=== PATIENT | female | born 1995 | race Caucasian/White ===

== ENCOUNTER 2024-09-28 20:05 | Emergency (ER) | payer OTHER, SELFPAY ==
[2024-09-28 20:33] VITALS: BP 132/68; PULSE 94; RESP 16; TEMP 36.9; O2SAT 100; BMI 24.6
--- NOTE | 2024-09-28 20:45 | DI.RAD.S_ITS ---
PROCEDURE: XR ANKLE LT MIN 3V INDICATIONS: Fall, twisted L ankle, heard pop, now swollen and pain TECHNIQUE: 3 views of the ankle were acquired. COMPARISON: None. FINDINGS: Bones: No fractures or dislocations. Ankle mortise is normally aligned. No suspicious bony lesions. Soft tissues: Mild lateral malleolar edema. IMPRESSION: No visualized acute fracture or dislocation. However, if clinical concern and/or pain persist, short interval imaging followup in 7-10 days is recommended, as occult injury cannot be definitively excluded. Dictated by: Deborah Finley M.D. on 09/28/2024 at 21:45 Approved by: Deborah Finley M.D. on 09/28/2024 at 21:45
[2024-09-28] MEDS: IBUPROFEN 400 MG TABLET PO (21:42)
[2024-09-28] MEDS: ACETAMINOPHEN 325 MG TABLET 650 MG PO (21:42)
--- NOTE | 2024-09-28 22:25 | ED_ITS ---
HPI - Extremity Injury (Lower) General Chief Complaint: Extremity Injury, Lower Stated Complaint: L Ankle Injury Time Seen by Provider: 09/28/24 22:24 Source: patient, RN notes reviewed and old records reviewed Mode of arrival: Family Vehicle History of Present Illness HPI Narrative: 29-year-old female with complaint of left ankle pain after falling and twisting today. States that down some stairs and we will home called the ankle to twist and pop. Increased pain, decreased range of motion in pain with weight-bearing. Patient was able to drive himself here today. Patient denies any other injuries. States she has had sprain start ankle before. No numbness, tingling or weakness. Related Data Allergies Allergy/AdvReac Type Severity Reaction Status Date / Time amoxicillin Allergy Verified 09/28/24 21:38 Review of Systems Review of Systems ROS Unobtainable: All systems reviewed & are unremarkable except as noted in HPI and below Exam Narrative Exam Narrative: GENERAL: Alert and oriented x three, female in mild distress HEENT: Head normocephalic, atraumatic, EOMI, pupils reactive, face symmetric, moist mucous membranes NECK: Supple, full range of motion EXTREMITIES: Normal range of motion, no clubbing. Patient has a edema over lateral malleolus with a little bit of ecchymosis., no tenderness of the toes, metatarsals, calcaneus or medial malleolus. Nontender over the tibia or fibula no tenderness of the knee. Patient does have tenderness over the lateral malleolus. Neurovascularly intact. Dorsalis pedis 2+. Normal sensation throughout. NEUROLOGICAL: Cranial nerves II through XII grossly intact. Moving all extremities SKIN: Warm, dry, no petechiae, no rashes or lesions. Initial Vital Signs Initial Vital Signs: Vital Signs Temperature 98.5 F 09/28/24 20:33 Pulse Rate 94 H 09/28/24 20:33 Respiratory Rate 16 09/28/24 20:33 Blood Pressure 132/68 09/28/24 20:33 Pulse Oximetry 100 09/28/24 20:33 Oxygen Delivery Method Room Air 09/28/24 20:33 Course Orders Ordered: ED Orders 09/28/24 20:45 XR ankle LT min 3V Stat Discontinued Medications Acetaminophen (Acetaminophen 325 Mg Tablet) 650 mg PO NOW ONE Stop: 09/28/24 21:38 Last Admin: 09/28/24 21:42 Dose: 650 mg Documented By: KAT Ibuprofen (Ibuprofen 400 Mg Tablet) 400 mg PO NOW ONE Stop: 09/28/24 21:37 Last Admin: 09/28/24 21:42 Dose: 400 mg Documented By: KAT Vital Signs Vital signs: Vital Signs - 8 hr 09/28/24 20:33 09/28/24 22:41 Temperature 98.5 F Pulse Rate 94 H 74 Respiratory Rate 16 16 Blood Pressure 132/68 121/69 Pulse Oximetry 100 98 Oxygen Delivery Method Room Air MDM - Extremity Injury (Lower) MDM Narrative Medical decision making narrative: 29-year-old female with left ankle injury, has swelling over lateral malleolus. Patient has pain over the lateral malleolus with pain with a weight-bearing. Meets [place] ankle rules for imaging. Left ankle x-ray shows no fractures dislocation, ankle mortise normally aligned. It was suspicious bony lesions, mild lateral malleolar edema. Plan for weight-bearing as tolerated, crutches, patient to follow up in the next 72 days for recheck if persistent symptoms. Discharge Plan Departure Patient Disposition: Home Clinical Impression: Left ankle sprain Instructions: DI for Ankle Sprain Activity Restrictions/Additional Instructions: Follow up in the next 7-10 days for recheck if you are not having any improvement in your symptoms. Your x-ray today shows a little bit of edema or swelling over the lateral malleolus but no changes to the bone. You can take ibuprofen up to 600 mg every 6 hours and/or acetaminophen up to a 1000 mg every 6 hours as needed for pain. You may weightbear as tolerated. Splint Care: Keep splint clean and dry. Elevated affected body part to decrease swelling. OK to use ice pack on the affected body part. Use for 15-20 minutes each time, for 5-6x per day. If you develop worsening pain, numbness, tingling, discoloration of the affected body part, loosen the splint by loosening the DAVIDA wrap, and either see your doctor for an urgent re-assessment, or return to the Emergency Department. Return to the Emergency Department for any new or worsening symptoms. Stand Alone Forms: Patient Portal/API/Survey
[2024-09-28 22:41] VITALS: BP 121/69; PULSE 74; RESP 16; O2SAT 98
== END 2024-09-28 22:42 | disposition home or self-care (01) ==
PROVIDERS: Emergency Provider Emergency Medicine
DX: S93.402A Sprain of unspecified ligament of left ankle, initial encounter (principal); X50.1XXA Overexertion from prolonged static or awkward postures, initial encounter
CPT/HCPCS: 73610; 99283